=== PATIENT | male | born 1965 | race Caucasian/White ===

== ENCOUNTER 2020-10-05 21:12 | Emergency (ER) | payer OTHER, MEDICAID ==
[~2020-10-05] VITALS: Ht 180.3 cm; Wt 81.7 kg
[~2020-10-05 21:12] MED LIST: LISINOPRIL10 MG PO; METFORMIN HCL500 MG PO
[2020-10-05] MEDS ORDERED: LISINOPRIL2.5 MG PO (21:29)
[2020-10-05] MEDS ORDERED: NORCO5 PO (21:49)
[2020-10-05 22:13] LABS: ABSOLUTE MONOCYTES 0.1 thou/uL (0.0-1.2); ABSOLUTE NEUTROPHILS 2.3 thou/uL (1.6-8.1); BASOPHILS 0.5 %; EOSINOPHILS 0.2 %; HEMATOCRIT 35.6 % (42.0-52.0); HEMOGLOBIN 12.2 gm/dL (14.0-18.0); LYMPHOCYTES 29.5 %; MCH 29.2 pg (26.0-34.0); MCHC 34.3 g/dL (28.0-37.0); MPV 7.8 fl. (7.2-11.1); NUCLEATED RBCS 0 /100WBC; PLATELET COUNT* 122 thou/uL (150-400); POLYS 65.8 %; RBC 4.18 mil/uL (4.50-6.00); RDW-CV 13.6 % (10.5-14.5); WBC 3.4 thou/uL (4.0-11.0)
[2020-10-05 22:21] LABS: CALCIUM 8.2 mg/dL (8.5-10.1); POTASSIUM 3.9 mmol/L (3.5-5.1)
[2020-10-05] MEDS ORDERED: AUGMENTIN 875-1 EACH PO (22:56)
[2020-10-06 00:13] VITALS: BP 105/68
== END 2020-10-06 00:13 | disposition home or self-care (01) ==
LOC: M.ERS 21:12
PROVIDERS: Emergency Medicine
DX: U07.1 COVID-19 (principal); J18.9 Pneumonia, unspecified organism; E11.9 Type 2 diabetes mellitus without complications

== ENCOUNTER 2020-10-10 23:05 | Emergency (ER) | payer OTHER, MEDICAID ==
[~2020-10-10] VITALS: Ht 180.3 cm; Wt 77.1 kg
[~2020-10-10 23:05] MED LIST changes: +AUGMENTIN 875-1 EACH PO; +LISINOPRIL2.5 MG PO; +NORCO5 PO
[2020-10-11 01:00] VITALS: BP 145/82
--- NOTE | 2020-10-11 11:36 | EKG ---
[place] [address] ELECTROCARDIOGRAM REPORT Name: CECIL LEES Room: [facility]#: [id number] Admission: 10/10/20 Attend Phys: Discharge: 10/11/20 Date of : 65 Date of Service: 10/10/20 2324 Report #: [id number] THIS REPORT FOR: //name// [facility] ED Test Date: 2020-10-10 Test Time: 23:24:42 Pat Name: CECIL LEES Department: Room: Gender: Industrial Painter: : 1965 Requested By: Katheryn Jacobson Order Number: [id number] MD: Karsten Carey Measurements Intervals [place] Rate: 99 P: 62 CO: 155 QRS: 2 QRSD: 102 T: 60 QT: 348 QTc: 447 Interpretive Statements Sinus rhythm Probable left atrial enlargement RSR' in V1 or V2, right VCD or RVH Compared to ECG 12/19/2016 15:12:20 no change Electronically Signed On 10-11-2020 11:36:02 CDT by Karsten Carey [email or web address] <ELECTRONICALLY SIGNED> By: Karsten Carey MD, [facility] 10/11/20 1136 2324 2324 Karsten Carey MD, [facility] /EPI
== END 2020-10-11 01:00 | disposition home or self-care (01) ==
LOC: M.ERS 23:05
DX: U07.1 COVID-19 (principal); R51.9 Headache, unspecified; E11.9 Type 2 diabetes mellitus without complications